=== PATIENT | male | born 1975 | race Two or more races ===

== ENCOUNTER → 2018-06-05 | Outpatient (CLI) | payer OTHER | END | disposition home or self-care (01) | LOC: RAD 501 13:36 | DX: R07.89 Other chest pain (principal) ==

== ENCOUNTER 2018-06-07 08:48 | Outpatient (CLI) | payer OTHER | END 2018-06-07 08:54 | disposition home or self-care (01) | LOC: EKG 08:48 | DX: I10 Essential (primary) hypertension (principal) ==